=== PATIENT | female | born 1985 | race Caucasian/White ===

== ENCOUNTER 2017-04-04 14:33 | Emergency (ER) | payer OTHER ==
[~2017-04-04] VITALS: Ht 165.1 cm; Wt 150.0 kg
[2017-04-04 14:40] VITALS: BP 177/90; PULSE 77; TEMP 98.3
[2017-04-04] MEDS ORDERED: CELEXA40 MG PO ×2 (14:53→15:07)
[2017-04-04] MEDS ORDERED: LIPITOR 10MG10 MG PO (14:54)
[2017-04-04] MEDS ORDERED: PRILOTC PO (15:00)
[2017-04-04] MEDS ORDERED: CLARITIN 1010 MG/TAB PO (15:00)
[2017-04-04] MEDS ORDERED: PROAIR HFA0.09 MG/AC IH (15:01)
[2017-04-04] MEDS ORDERED: VITAMIN D 1001000 IU PO (15:01)
[2017-04-04] MEDS ORDERED: INDERAL 10MG10 MG PO (15:02)
== END 2017-04-04 15:22 | disposition home or self-care (01) ==
LOC: COL.ER 14:33
DX: F32.9 Major depressive disorder, single episode, unspecified (principal); F41.9 Anxiety disorder, unspecified; K21.9 Gastro-esophageal reflux disease without esophagitis; Z87.19 Personal history of other diseases of the digestive system

== ENCOUNTER 2017-07-01 12:28 | Emergency (ER) | payer OTHER ==
[~2017-07-01] VITALS: Ht 165.1 cm; Wt 150.0 kg
[~2017-07-01 12:28] MED LIST: CELEXA40 MG PO; CLARITIN 1010 MG/TAB PO; INDERAL 10MG10 MG PO; LIPITOR 10MG10 MG PO; PRILOTC PO; PROAIR HFA0.09 MG/AC IH; VITAMIN D 1001000 IU PO
[2017-07-01 12:35] VITALS: TEMP 98.3
[2017-07-01 14:51] VITALS: BP 174/89; PULSE 78
== END 2017-07-01 14:52 | disposition home or self-care (01) ==
LOC: COL.ER 12:28
DX: G43.909 Migraine, unspecified, not intractable, without status migrainosus (principal); Z88.2 Allergy status to sulfonamides; F32.9 Major depressive disorder, single episode, unspecified; F41.9 Anxiety disorder, unspecified; K21.9 Gastro-esophageal reflux disease without esophagitis
CPT/HCPCS: J1885; J2550